=== PATIENT | male | born 1975 | race Hispanic/Latino ===

== ENCOUNTER 2017-10-05 13:45 | Emergency (ER) | payer MEDICAID, OTHER ==
[2017-10-05 13:45] VITALS: BMI 49.3
[2017-10-05 14:05] VITALS: RESP 18; TEMP 97.8; O2SAT 100
--- NOTE | 2017-10-05 14:49 | ED PDOC ---
Arrival/HPI - General Chief Complaint: Back Pain Time Seen by Provider: 10/05/17 14:21 Historian: Patient - Critical Care Narrative Critical Care (Text): you were treated in the ED today for having some regular work where you don't do specific lifting but you do work out at the gym regularly and have had right lower back pain otherwise without any fall/injury/trauma/nausea/vomiting/ headache/dizziness/difficulty breathing/chest pain/abdomen pain/numbness/ tingling/loss of limb or bowel or bladder function/pain with urination/blood in urine. 10/05/17 14:47 10/05/17 14:52 - History of Present Illness Time/Duration: 24 hours Symptom Onset: Gradual Symptom Course: Improving, Resolved Context: Sitting Past Medical History - Provider Review Nursing Documentation Reviewed: Yes - Infectious Disease Hx of Infectious Diseases: None - Cardiac Hx Hypertension: Yes Other/Comment: varicose veins - Pulmonary Hx Respiratory Disorders: No - Neurological Hx Neurological Disorder: No - HEENT Hx HEENT Disorder: No - Renal Hx Renal Disorder: No - Endocrine/Metabolic Hx Endocrine Disorders: No - Hematological/Oncological Hx Blood Disorders: No - Integumentary Hx Dermatological Disorder: No - Musculoskeletal/Rheumatological Hx Falls: No - Gastrointestinal Hx Gastrointestinal Disorders: No - Genitourinary/Gynecological Hx Genitourinary Disorders: No Other/Comment: states" i am under the care of Dr. Rebollar - when i was younger i had this thick skin growing my private area and when i went my urine spread all over and it seems like it's happening again" - Psychiatric Hx Depression: No Hx Emotional Abuse: No Hx Physical Abuse: No Hx Substance Use: No - Surgical History Hx Tonsillectomy: Yes Other/Comment: had a procedure to widen the ureter as a child - Suicidal Assessment Feels Threatened In Home Enviroment: No Family/Social History Family/Social History: No Known Family HX Smoking Status: Never Smoked Hx Alcohol Use: No Hx Substance Use: No Hx Substance Use Treatment: No Allergies/Home Meds Allergies/Adverse Reactions: Allergies No Known Allergies Allergy (Verified 10/05/17 14:04) Home Medications: Home Meds Medication Instructions Recorded Confirmed Metoprolol 50 mg PO DAILY 10/05/17 10/05/17 Review of Systems - Review of Systems Constitutional: Normal Eyes: Normal ENT: Normal Respiratory: Normal Cardiovascular: Normal Gastrointestinal: Normal Genitourinary Male: Normal Musculoskeletal: Normal, Other (no bony or cervical or thoracic or lumbar spinal or paraspinal tenderness except for right lower lumbar paraspinal tenderness. no erythema/fluctuance or crepitus) Skin: Normal Neurological: Normal Endocrine: Normal Hemo/Lymphatic: Normal Psychiatric: Normal Physical Exam Vital Signs Reviewed: Yes Vital Signs Temp Pulse Resp BP Pulse Ox 10/05/17 13:45 97.8 F 61 18 144/88 100 Temperature: Afebrile Blood Pressure: Hypertensive Pulse: Regular Respiratory Rate: Normal Appearance: Positive for: Well-Appearing Pain Distress: None Mental Status: Positive for: Alert and Oriented X 3. No: Confused, Agitated, Lethargic, Comatose, other - Systems Exam Pupils: Present: PERRL Extroacular Muscles: Present: EOMI Conjunctiva: Present: Normal Ears: Present: Normal Mouth: Present: Moist Mucous Membranes Pharnyx: Present: Normal Nose (External): Present: Atraumatic Nose (Internal): Present: Normal Inspection Neck: Present: Normal Range of Motion Respiratory/Chest: Present: Clear to Auscultation, Good Air Exchange Cardiovascular: Present: Regular Rate and Rhythm Abdomen: Present: Other (no pulsatile masses) Back: Present: Normal Inspection, Other (no cervical or thoracic or lumbars spinal or paraspinal tenderness except for right lumbar mild muscle spasm wo erythema/fluctuance or crepitus.) Upper Extremity: Present: Normal Inspection Lower Extremity: Present: Normal Inspection Neurological: Present: GCS=15, CN II-XII Intact Skin: Present: Warm, Normal Color Medical Decision Making ED Course and Treatment: you have a history of diabetic controlled diet, with finger stick in your normal 70s range yesterday, and were treated in the ED today for having some regular work where you don't do specific lifting but you do work out at the gym regularly and have had right lower back pain otherwise without any fall/injury/ trauma/nausea/vomiting/headache/dizziness/difficulty breathing/chest pain/ abdomen pain/numbness/tingling/loss of limb or bowel or bladder function/pain with urination/blood in urine. You were otherwise breathing easily, smiling, good strength/sensation, walking easily, clear lungs, no abdomen tenderness, no fever temp 97.8, stable heart rate 61, stable breathing rate 18, excellent oxygen level 100% room air, elevated blood pressure 144/88 which we recommend repeat in 2-3 days primary care office to determine further treatment, you have right lower back muscle pain, motrin done in the ED with improvement, counselled to rest and thus discharged home. 1. Recommend motrin as directed for mild pain. 2. Recommend flexeril as directed for muscle breakthrough and dont' work/drive/drink alchol when using. 3. Recommend followup primary care 2- 3 days to review symptoms, referral to spine clinic. 4. If any worsening pain, fever, chills, nausea, vomiting, difficulty breathing, numbness, loss of limb function, pain with urination or any medical condition then return to the ED. 10/05/17 14:57 Reassessment Condition: Re-examined - Medication Orders Current Medication Orders: Discontinued Medications Ibuprofen (Motrin Tab) 800 mg PO STAT STA Stop: 10/05/17 14:47 Disposition/Present on Arrival - Present on Arrival Any Indicators Present on Arrival: No History of DVT/PE: No History of Uncontrolled Diabetes: No Urinary Catheter: No History of Decub. Ulcer: No History Surgical Site Infection Following: None - Disposition Have Diagnosis and Disposition been Completed?: Yes Diagnosis: Low back pain Disposition Time: 15:06 Condition: IMPROVED Discharge Instructions (ExitCare): Back Pain (GEN) Additional Instructions: you have a history of diabetic controlled diet, with finger stick in your normal 70s range yesterday, and were treated in the ED today for having some regular work where you don't do specific lifting but you do work out at the gym regularly and have had right lower back pain otherwise without any fall/injury/ trauma/nausea/vomiting/headache/dizziness/difficulty breathing/chest pain/ abdomen pain/numbness/tingling/loss of limb or bowel or bladder function/pain with urination/blood in urine. You were otherwise breathing easily, smiling, good strength/sensation, walking easily, clear lungs, no abdomen tenderness, no fever temp 97.8, stable heart rate 61, stable breathing rate 18, excellent oxygen level 100% room air, elevated blood pressure 144/88 which we recommend repeat in 2-3 days primary care office to determine further treatment, you have right lower back muscle pain, motrin done in the ED with improvement, counselled to rest and thus discharged home. 1. Recommend motrin as directed for mild pain. 2. Recommend flexeril as directed for muscle breakthrough and dont' work/drive/drink alchol when using. 3. Recommend followup primary care 2- 3 days to review symptoms, referral to spine clinic. 4. If any worsening pain, fever, chills, nausea, vomiting, difficulty breathing, numbness, loss of limb function, pain with urination or any medical condition then return to the ED. Prescriptions: Cyclobenzaprine [Cyclobenzaprine HCl] 10 mg PO Q8 PRN #15 tab PRN Reason: Pain, Moderate (4-7) Referrals: Jorge Parham MD [Primary Care Provider] - Follow up with primary Forms: [facility] (Malay), WORK NOTE
[2017-10-05 15:43] VITALS: BP 158/93; PULSE 70
== END 2017-10-05 15:44 | disposition home or self-care (01) ==
LOC: ED 13:45
DX: M54.5 Low back pain (principal); E11.9 Type 2 diabetes mellitus without complications; I10 Essential (primary) hypertension